=== PATIENT | male | born 1960 | race Caucasian/White ===

== ENCOUNTER 2016-12-14 13:18 | Emergency (ER) | payer OTHER ==
--- NOTE | 2016-12-14 13:47 | Emergency Department Record ---
History of Present Illness - General Chief Complaint: Back Pain/Injury Stated Complaint: BACK PAIN Time Seen by Provider: 12/14/16 13:35 Source: Patient Mode of Arrival: Ambulatory Limitations: No limitations - History of Present Illness Initial Comments: The patient is here due to multiple issues. He has had chronic back pain for over a year. The pain is in the mid to lower back and is aching. It is worse with bending and twisting and has been getting progressively worse over the last year. He did have an MRI per his PCP and was told he had Spinal stenosis and takes Tylenol and a muscle relaxer for it. Today he also has had upper abdominal pain and "indigestion" for 7 hours. The pain is mild and is not associated with any nausea, vomiting, CP, SOB, MARY, or sweating. He did take some Tums for it but there was no resolution of the discomfort so he decided to come to the ER. He denies any leg weakness, numbness, tingling or any bowel or bladder issues. The patient denies any hx of ANY CP with exertion and did have a neg EST about 2 months ago. MD Complaint: Back pain Onset/Timin -: Year(s) Similar Symptoms Previously: Yes Place: Work Severity: Moderate Severity scale (1-10): 6 Quality: Burning Consistency: Constant Improves With: None Worsens With: None Associated Symptoms: Denies other symptoms Treatments Prior to Arrival: Acetaminophen Treatment Prior to Arrival Comment:: 2 extra strength tylenol this AM - Related Data Home Medications Medication Instructions Recorded Confirmed Last Taken Aspirin [Aspirin EC] 81 mg PO DAILY 07/04/14 12/14/16 12/14/16 Fenofibrate [Lofibra] 160 mg PO QHS 07/04/14 12/14/16 12/14/16 Lisinopril/Hydrochlorothiazide 1 each PO DAILY 07/04/14 12/14/16 12/14/16 [Zestoretic 20-25 mg Tablet] Loratadine 10 mg PO QD tab 01/05/16 12/14/16 12/14/16 Fluticasone Propionate [Flonase] 2 spray IN DAILY 12/14/16 12/14/16 12/14/16 Previous Rx's Medication Instructions Recorded Cyclobenzaprine HCl [Flexeril] 10 mg PO TID #20 tablet 01/29/15 Omeprazole [Prilosec] 20 mg PO DAILY #15 12/14/16 Allergies Allergy/AdvReac Type Severity Reaction Status Date / Time ibuprofen AdvReac Unknown PT UNSURE Verified 12/14/16 13:21 OF REACTION Travel Screening - Travel/Exposure Within Last 30 Days Have you traveled within the last 30 days?: No - Travel/Exposure Within Last Year Have you traveled outside the [place] in the last year?: No - Additonal Travel Details Have you been exposed to anyone with a communicable illness?: No - Travel Symptoms Symptom Screening: None Review of Systems Constitutional: Denies: Chills, Fever Eyes: Denies: Eye discharge ENT: Denies: Congestion Respiratory: Denies: Cough, Dyspnea Past Medical History - SOCIAL HISTORY Smoking Status: Former smoker Alcohol Use: Occassional Drug Use: None - RESPIRATORY Hx Respiratory Disorders: No - CARDIOVASCULAR Hx Cardio Disorders: Yes Hx Hypertension: Yes - NEURO Hx Neuro Disorders: Yes - GI Hx GI Disorders: No - Hx Genitourinary Disorders: No - ENDOCRINE Hx Endocrine Disorders: No - MUSCULOSKELETAL Hx Musculoskeletal Disorders: Yes Hx Arthritis: Yes - PSYCH Hx Psych Problems: No - HEMATOLOGY/ONCOLOGY Hx Hematology/Oncology Disorders: No Family Medical History Any Significant Family History?: Yes Hx Cancer: Father Hx Heart Disease: Father Hx Stroke: Mother Physical Exam - General General Appearance: Alert, Oriented x3, Cooperative, No acute distress - Head Head exam: Atraumatic, Normocephalic, Normal inspection - Eye Eye exam: Normal appearance, PERRL - Neck Neck exam: Normal inspection, Full ROM. negative: Tenderness - Respiratory Respiratory exam: Normal lung sounds bilaterally. negative: Respiratory distress - Cardiovascular Cardiovascular Exam: Regular rate, Normal rhythm, Normal heart sounds - GI/Abdominal GI/Abdominal exam: Soft, Normal bowel sounds, Tenderness (There is mild epigastric tenderness.). negative: Distended, Guarding, Rebound, Rigid - Extremities Extremities exam: Normal inspection, Full ROM, Normal capillary refill. negative: Tenderness - Neurological Neurological exam: Alert, Normal gait. negative: Abnormal gait, Motor sensory deficit - Psychiatric Psychiatric exam: negative: Anxious, Depressed Course Vital Signs 12/14/16 13:25 Temperature 97.7 F Pulse Rate 78 Respiratory 18 Rate Blood Pressure 143/88 Pulse Ox 98 - Reevaluation(s) Reevaluation #1: The patient is doing much better. His upper abdominal discomfort has resolved completely with the GI medicines. He is resting comfortably and is waiting on his CXR. 12/14/16 14:49 Reevaluation #2: The patient is doing very well. He denies any pain or discomfort at this time. He feels 100% better with the GI medicines. The patient has been up walking with no difficulty or issues and feels comfortably being discharged to home with F/U with his PCP. 12/14/16 15:30 Medical Decision Making - Data Complexity MDM Data: Labs Ordered and/or Reviewed, X-Ray Ordered and/or Reviewed, EKG Ordered and/or Reviewed - Lab Data Result diagrams: 12/14/16 13:50 12/14/16 13:50 - EKG Data -: EKG Interpreted by Me EKG: No Acute Changes, Normal EKG - Radiology Data Radiology results: Report reviewed (CXR: Borderline CMG, Neg acute changes.) Disposition Disposition: Discharge Clinical Impression: Gastritis Qualifiers: Gastritis type: unspecified gastritis Chronicity: acute Gastritis bleeding: without bleeding Qualified Code(s): K29.00 - Acute gastritis without bleeding Chronic back pain Qualifiers: Back pain location: thoracic back pain Back pain laterality: unspecified Qualified Code(s): M54.6 - Pain in thoracic spine Disposition: Home, Self-Care Condition: (2) Stable Instructions: Gastritis (ED), Chronic Back Pain (ED) Additional Instructions: Please continue your regular medicines for pain and add the Prilosec. Please see your PCP later this week or next week for recheck. Return to the ER for any increased pain, fever, trouble breathing or shortness of breath. Prescriptions: Omeprazole [Prilosec] 20 mg PO DAILY #15 cap.dr Forms: Patient Portal Access Time of Disposition: 15:34 Quality - Quality Measures Quality Measures: N/A - Blood Pressure Screening Blood Pressure Classification: Pre-Hypertensive BP Reading Systolic Measurement: 143 Diastolic Measurement: 88 Screening for High Blood Pressure: < Pre-Hypertensive BP, F/U Documented > [ G8950] Pre-Hypertensive Follow-up Interventions: Follow-up with rescreen every year.
[2016-12-14] MEDS: SUCRALFATE 1 G/10 ML UD PO ONE (13:55)
[2016-12-14] MEDS: KETOROLAC 30 MG/ML VIAL IVP ONE (13:55)
[2016-12-14] MEDS: ONDANSETRON HCL IV 4 MG/2 ML VIAL IVP ONE (13:55)
[2016-12-14 13:57] LABS: HEMATOCRIT 43.6 % (42.0-52.0); HEMOGLOBIN 15.3 gm/dl (14.0-18.0); MEAN CELL VOLUME 86.7 fl (81-97); MEAN CORPUSCULAR HEMOGLOBIN 30.4 pg (27-33); MEAN CORPUSCULAR HGB CONC 35.1 g/dl (32-36); MEAN PLATELET VOLUME 9.2 fl (7.4-10.4); PLATELET COUNT 321 K/uL (130-400); RED BLOOD COUNT 5.03 M/uL (4.40-5.70); RED CELL DISTRIBUTION WIDTH 13.6 % (11.5-14.5); WHITE BLOOD COUNT W/O DIFF 11.3 K/uL (4.2-12.2)
[2016-12-14 14:09] LABS: CREATINE PHOSPHOKINASE 55 U/L (55-170)
[2016-12-14 14:11] LABS: ALBUMIN 4.5 gm/dL (3.5-5.0); ALKALINE PHOSPHATASE 66 U/L (38-126); ALT/SGPT 45 U/L (21-72); ANION GAP 11.7 (7-16); AST/SGOT 22 U/L (17-59); BLOOD UREA NITROGEN 21 mg/dL (9-20); CARBON DIOXIDE 23.3 mmol/L (22-30); CREATININE 1.1 mg/dL (0.66-1.25); EST GLOMERULAR FILTRATION RATE > 60 ml/min; GLUCOSE,RANDOM 97 mg/dL (70-110); LIPASE 116 U/L (23-300); TOTAL PROTEIN 7.5 gm/dL (6.3-8.2)
[2016-12-14 14:21] LABS: CKMB 1.1 ug/L (0-6)
[2016-12-14 14:24] LABS: TROPONIN I < 0.012 ng/mL (0.00-0.034)
[2016-12-14] MEDS: MAGNESIUM HYDROXIDE/AL HYDROX 30 ML, LIDOCAINE VISC 2% 200 MG PO ONE ×2 (14:45)
--- NOTE | 2016-12-14 18:04 | Emergency Department Record ---
History of Present Illness - General Chief Complaint: Back Pain/Injury Stated Complaint: BACK PAIN Time Seen by Provider: 12/14/16 13:35 Source: Patient Limitations: No limitations - History of Present Illness Onset/Timin -: Year(s) Similar Symptoms Previously: Yes Place: Work Severity: Moderate Severity scale (1-10): 6 Quality: Burning Consistency: Constant Improves With: None Worsens With: None Associated Symptoms: Denies other symptoms Treatments Prior to Arrival: Acetaminophen Treatment Prior to Arrival Comment:: 2 extra strength tylenol this AM - Related Data Home Medications Medication Instructions Recorded Confirmed Last Taken Aspirin [Aspirin EC] 81 mg PO DAILY 07/04/14 12/14/16 12/14/16 Fenofibrate [Lofibra] 160 mg PO QHS 07/04/14 12/14/16 12/14/16 Lisinopril/Hydrochlorothiazide 1 each PO DAILY 07/04/14 12/14/16 12/14/16 [Zestoretic 20-25 mg Tablet] Loratadine 10 mg PO QD tab 01/05/16 12/14/16 12/14/16 Fluticasone Propionate [Flonase] 2 spray IN DAILY 12/14/16 12/14/16 12/14/16 Previous Rx's Medication Instructions Recorded Cyclobenzaprine HCl [Flexeril] 10 mg PO TID #20 tablet 07/04/14 Omeprazole [Prilosec] 20 mg PO DAILY #15 cap. 12/14/16 Allergies Allergy/AdvReac Type Severity Reaction Status Date / Time ibuprofen AdvReac Unknown PT UNSURE Verified 12/14/16 13:21 OF REACTION Travel Screening - Travel/Exposure Within Last 30 Days Have you traveled within the last 30 days?: No - Travel/Exposure Within Last Year Have you traveled outside the [place] in the last year?: No - Additonal Travel Details Have you been exposed to anyone with a communicable illness?: No - Travel Symptoms Symptom Screening: None Review of Systems Constitutional: Denies: Chills, Fever Eyes: Denies: Eye discharge ENT: Denies: Congestion Respiratory: Denies: Cough, Dyspnea Past Medical History - SOCIAL HISTORY Smoking Status: Former smoker Alcohol Use: Occassional Drug Use: None - RESPIRATORY Hx Respiratory Disorders: No - CARDIOVASCULAR Hx Cardio Disorders: Yes Hx Hypertension: Yes - NEURO Hx Neuro Disorders: Yes - GI Hx GI Disorders: No - Hx Genitourinary Disorders: No - ENDOCRINE Hx Endocrine Disorders: No - MUSCULOSKELETAL Hx Musculoskeletal Disorders: Yes Hx Arthritis: Yes - PSYCH Hx Psych Problems: No - HEMATOLOGY/ONCOLOGY Hx Hematology/Oncology Disorders: No Family Medical History Any Significant Family History?: Yes Hx Cancer: Father Hx Heart Disease: Father Hx Stroke: Mother Physical Exam - General Limitations: No limitations Course Vital Signs 12/14/16 12/14/16 13:25 15:41 Temperature 97.7 F Pulse Rate 78 84 Respiratory 18 16 Rate Blood Pressure 143/88 133/74 Pulse Ox 98 98 - Reevaluation(s) Reevaluation #1: The patient was also directed to see his PCP to have his WBC rechecked due to the high Eosinophil count. 12/14/16 18:03 Medical Decision Making - Lab Data Result diagrams: 12/14/16 13:50 12/14/16 13:50 Lab Results 12/14/16 12/14/16 12/14/16 Range/Units 13:50 13:50 13:50 WBC 11.3 (4.2-12.2) K/uL RBC 5.03 (4.40-5.70) M/uL Hgb 15.3 (14.0-18.0) gm/dl Hct 43.6 (42.0-52.0) % MCV 86.7 (81-97) fl MCH 30.4 (27-33) pg MCHC 35.1 (32-36) g/dl RDW 13.6 (11.5-14.5) % Plt Count 321 (130-400) K/uL MPV 9.2 (7.4-10.4) fl Neutrophils % 43.0 L (47-80) % Eosinophils % Not Reportable Basophils % Not Reportable Lymphocytes 27.0 (16-45) % Monocytes 7.0 (0-9) % Eosinophil Count 23.0 H (0-6) % Sodium Cancelled 139 Potassium Cancelled 3.9 Chloride Cancelled 104 Carbon Dioxide Cancelled 23.3 Anion Gap Cancelled 11.7 BUN Cancelled 21 H Creatinine Cancelled 1.1 Estimated GFR Cancelled > 60 Random Glucose Cancelled 97 Calcium Cancelled 10.5 H Total Bilirubin Cancelled 0.90 Direct Bilirubin 0.0 (0-0.3) mg/dL AST Cancelled 22 ALT Cancelled 45 Alkaline Phosphatase Cancelled 66 Creatine Kinase 55 (55-170) U/L CK-MB (CK-2) 1.1 (0-6) ug/L Troponin I < 0.012 (0.00-0.034) ng/mL Total Protein Cancelled 7.5 Albumin Cancelled 4.5 Globulin Cancelled Albumin/Globulin Ratio Cancelled Lipase 116 (23-300) U/L Disposition Clinical Impression: Gastritis Qualifiers: Gastritis type: unspecified gastritis Chronicity: acute Gastritis bleeding: without bleeding Qualified Code(s): K29.00 - Acute gastritis without bleeding Chronic back pain Qualifiers: Back pain location: thoracic back pain Back pain laterality: unspecified Qualified Code(s): M54.6 - Pain in thoracic spine Disposition: Home, Self-Care Condition: (2) Stable Instructions: Gastritis (ED), Chronic Back Pain (ED) Additional Instructions: Please continue your regular medicines for pain and add the Prilosec. Please see your PCP later this week or next week for recheck. Return to the ER for any increased pain, fever, trouble breathing or shortness of breath. Prescriptions: Omeprazole [Prilosec] 20 mg PO DAILY #15 cap.dr Forms: Patient Portal Access Quality - Quality Measures Quality Measures: N/A - Blood Pressure Screening Blood Pressure Classification: Pre-Hypertensive BP Reading Systolic Measurement: 133 Diastolic Measurement: 74 Screening for High Blood Pressure: < Pre-Hypertensive BP, F/U Documented > [ G8950] Pre-Hypertensive Follow-up Interventions: Follow-up with rescreen every year.
--- NOTE | 2016-12-15 09:50 | RADIOLOGY REPORT ---
EXAM: CHEST, TWO VIEWS HISTORY: BACK PAIN BEGINNING THIS MORNING. TECHNIQUE: Upright PA and lateral views of the chest were obtained. Comparison: Left ribs with PA chest dated 07/04/14. FINDINGS: The heart projects at the upper limits of normal in size. No pulmonary venous hypertension is seen. The lungs and pleural spaces are clear. Chronic appearing fracture deformities of the posterolateral left fourth and fifth ribs. These deformities are new since the 2015 examination. Mild degenerative end plate changes are scattered within the thoracic spine. Fixation hardware is demonstrated within the lower cervical spine. This was not present on the prior examination. IMPRESSION: 1. BORDERLINE CARDIOMEGALY WITHOUT PULMONARY VENOUS HYPERTENSION. 2. NO EVIDENCE OF AN ACUTE PULMONARY PROCESS. 3. CHRONIC APPEARING FRACTURE DEFORMITIES OF THE POSTEROLATERAL LEFT FOURTH AND FIFTH RIBS. FIXATION HARDWARE SUGGESTED WITHIN THE LOWER CERVICAL SPINE. JOB NUMBER: [id number] MTDD
== END 2016-12-14 15:43 | disposition home or self-care (01) ==
LOC: ER 13:18
DX: K29.00 Acute gastritis without bleeding (principal); G89.29 Other chronic pain; M54.6 Pain in thoracic spine; I10 Essential (primary) hypertension; Z87.891 Personal history of nicotine dependence
CPT/HCPCS: 99284 ×2; 96374; 96375; 82550; 83690; 80076; 82553; 84484; 80048; 85027; 71020; 93005; 93010; J1885; J2405

== ENCOUNTER 2018-09-16 13:56 | Emergency (ER) | payer OTHER ==
[2018-09-16 14:34] LABS: HEMATOCRIT 45.6 % (42.0-52.0); HEMOGLOBIN 15.6 gm/dl (14.0-18.0); MEAN CELL VOLUME 88.4 fl (81-97); MEAN CORPUSCULAR HEMOGLOBIN 30.2 pg (27-33); MEAN CORPUSCULAR HGB CONC 34.2 g/dl (32-36); MEAN PLATELET VOLUME 9.3 fl (7.4-10.4); PLATELET COUNT 317 K/uL (130-400); RED BLOOD COUNT 5.16 M/uL (4.40-5.70); WHITE BLOOD COUNT W/O DIFF 7.2 K/uL (4.2-12.2)
--- NOTE | 2018-09-16 14:36 | Emergency Department Record ---
History of Present Illness - General Chief Complaint: Cough Stated Complaint: COUGH.CHEST HURTS Time Seen by Provider: 09/16/18 14:19 Source: Patient Mode of Arrival: Ambulatory Limitations: No limitations - History of Present Illness Initial Comments: The patient is here due to a bad cough for 2-3 days. He denies any SOB, MARY, or fever but he does have some chest pain ONLY with coughing. (The patient has a very deep, painful sounding cough.) The patient has been on AMox. for about a week for an ear infection. MD Complaint: Cough, Nasal congestion, Rhinorrhea Onset/Timin -: Days(s) Consistency: Intermittent - Related Data Home Medications Medication Instructions Recorded Confirmed Last Taken Amlodipine Besylate [Norvasc] 5 mg PO DAILY 09/16/18 09/16/18 09/16/18 Amoxicillin 500 mg PO TID 09/16/18 09/16/18 09/16/18 Cyclobenzaprine HCl [Flexeril] 10 mg PO ASDIR 09/16/18 09/16/18 09/16/18 Fenofibrate 40 mg PO ASDIR 09/16/18 09/16/18 09/16/18 Gabapentin 300 mg PO BID 09/16/18 09/16/18 09/15/18 Lisinopril/Hydrochlorothiazide 20 mg PO DAILY 09/16/18 09/16/18 09/16/18 [Lisinopril-Hctz 20-25 mg Tab] Previous Rx's Medication Instructions Recorded Albuterol Sulfate [Proair Hfa] 2 puff IH QID PRN #1 inhaler 09/16/18 Prednisone [Prednisone 20Mg] 40 mg PO DAILY #8 tab 09/16/18 Allergies Allergy/AdvReac Type Severity Reaction Status Date / Time ibuprofen AdvReac Unknown PT UNSURE Verified 09/16/18 14:00 OF REACTION Travel Screening - Travel/Exposure Within Last 30 Days Have you traveled within the last 30 days?: No - Travel/Exposure Within Last Year Have you traveled outside the [place] in the last year?: No - Additonal Travel Details Have you been exposed to anyone with a communicable illness?: No - Travel Symptoms Symptom Screening: None Review of Systems Constitutional: Reports: Malaise. Denies: Chills, Fever Eyes: Denies: Eye discharge ENT: Reports: Congestion Respiratory: Reports: Cough. Denies: Dyspnea, Hemoptysis Cardiovascular: Denies: Arrhythmia, Chest pain Endocrine: Reports: Fatigue Past Medical History - SOCIAL HISTORY Smoking Status: Former smoker Alcohol Use: Occasional Drug Use: None - RESPIRATORY Hx Respiratory Disorders: No - CARDIOVASCULAR Hx Cardio Disorders: Yes Hx Hypertension: Yes - NEURO Hx Neuro Disorders: Yes - GI Hx GI Disorders: No - Hx Genitourinary Disorders: No - ENDOCRINE Hx Endocrine Disorders: No - MUSCULOSKELETAL Hx Musculoskeletal Disorders: Yes Hx Arthritis: Yes - PSYCH Hx Psych Problems: No - HEMATOLOGY/ONCOLOGY Hx Hematology/Oncology Disorders: No Family Medical History Any Significant Family History?: Yes Hx Cancer: Father Hx Heart Disease: Father Hx Stroke: Mother Physical Exam - General General Appearance: Alert, Oriented x3, Cooperative, No acute distress - Head Head exam: Atraumatic, Normal inspection - Eye Eye exam: Normal appearance, PERRL - ENT ENT exam: negative: TM's normal bilaterally (The L TM is normal but the R TM is not visualized due to cerumen.) Throat exam: Normal inspection. negative: Tonsillar erythema, Tonsillomegaly - Neck Neck exam: Normal inspection, Full ROM. negative: Lymphadenopathy, Meningismus , Tenderness - Respiratory Respiratory exam: Normal lung sounds bilaterally. negative: Respiratory distress - Cardiovascular Cardiovascular Exam: Regular rate, Normal rhythm, Normal heart sounds - GI/Abdominal GI/Abdominal exam: Soft, Normal bowel sounds. negative: Tenderness - Extremities Extremities exam: Normal inspection, Full ROM, Normal capillary refill. negative: Tenderness - Back Back exam: Reports: Normal inspection - Neurological Neurological exam: Alert, Normal gait. negative: Abnormal gait, Motor sensory deficit - Skin Skin exam: negative: Rash Course Vital Signs 09/16/18 14:07 Temperature 98.4 F Pulse Rate 98 H Respiratory 20 Rate Blood Pressure 137/91 Pulse Ox 98 - Reevaluation(s) Reevaluation #1: The patient is doing better after the breathing TX. He denies any pain or SOB at this time. I did discuss the lab and xray results and the fact that it appears he has a viral URI. We will discharge the patient on an oral steroid and an inhaller and have him F/U with his PCP next week. 09/16/18 15:20 Medical Decision Making - Data Complexity MDM Data: Labs Ordered and/or Reviewed, X-Ray Ordered and/or Reviewed - Lab Data Result diagrams: 09/16/18 14:30 09/16/18 14:30 - Radiology Data Radiology results: Report reviewed (CXR: Neg) Disposition Disposition: Discharge Clinical Impression: URI, acute Disposition: Home, Self-Care Condition: (2) Stable Instructions: Upper Respiratory Infection (ED) Additional Instructions: Please continue your regular medicines and and add the Inhaller and continue the Prednisone. Please see your family doctor for recheck next week. Return to the ER for any worsening cough, fever, or trouble breathing. Prescriptions: Albuterol Sulfate [Proair Hfa] 2 puff IH QID PRN #1 inhaler PRN Reason: Cough And Difficulty Breathing Prednisone [Prednisone 20Mg] 40 mg PO DAILY #8 tab Forms: Patient Portal Access Time of Disposition: 15:27 Quality - Quality Measures Quality Measures: N/A - Blood Pressure Screening View Details: Yes Does Patient Have Any of the Following: No Blood Pressure Classification: Pre-Hypertensive BP Reading Systolic Measurement: 140 Diastolic Measurement: 88 Screening for High Blood Pressure: < Pre-Hypertensive BP, F/U Documented > [ G8950] Pre-Hypertensive Follow-up Interventions: Referral to alternative/primary care provider.
[2018-09-16] MEDS ORDERED: ALBUTEROL SULFATE (0.083%) 2.5 MG/3 ML NEB INH ONE (14:46)
[2018-09-16 15:06] LABS: BLOOD UREA NITROGEN 15 mg/dL (6-20); CREATININE 1.2 mg/dL (0.7-1.2); EST GLOMERULAR FILTRATION RATE > 60 mL/min
[2018-09-16 15:09] LABS: GLUCOSE,RANDOM 138 mg/dL (74-109)
[2018-09-16] MEDS ORDERED: PREDNISONE 20 MG TAB PO ONE (15:18)
--- NOTE | 2018-09-18 10:43 | RADIOLOGY REPORT ---
EXAM: CHEST, TWO VIEWS HISTORY: DIFFICULTY BREATHING AND COUGH. TECHNIQUE: Two views of the chest were obtained. Comparison: Chest radiograph 12/14/16. FINDINGS: The cardiac silhouette is stable in size. No focal pulmonary consolidation. No pleural effusion or pneumothorax. Chronic upper left rib fractures. Cervical fusion hardware. IMPRESSION: NO ACUTE LUNG FINDINGS. JOB NUMBER: [id number] MTDD
== END 2018-09-16 15:36 | disposition home or self-care (01) ==
LOC: ER 13:56
DX: J06.9 Acute upper respiratory infection, unspecified (principal); R06.00 Dyspnea, unspecified; R05 Cough; H61.21 Impacted cerumen, right ear; I10 Essential (primary) hypertension; Z87.891 Personal history of nicotine dependence
CPT/HCPCS: 99283; 99284; 80048; 84145; 85027; 71046; 94640; J7512; J7613